=== PATIENT | female | born 1985 | race Caucasian/White ===

== ENCOUNTER → 2016-11-19 | Outpatient (CLI) | payer OTHER ==
[~2016-11-19] MED LIST: MOTR200T44 PO; TYLE167L PO; VITAPRTA PO
[2016-11-19 18:30] LABS: BASO % 0.2 % (0.0-1.0); EOS % 0.4 % (0.0-3.0); LARGE UNSTAINED CELL # 0.1 K/mm3 (0.0-0.4); LARGE UNSTAINED CELL % 1.6 % (0.0-4.0); LYMPH # 1.9 K/mm3 (1.5-4.5); MEAN CORPUSCULAR HEMOGLOBIN 31.6 pg (27.0-33.0); MEAN CORPUSCULAR HGB CONC 34.1 g/dl (32.0-36.5); MEAN CORPUSCULAR VOLUME 92.5 fl (80.0-96.0); MONO # 0.4 K/mm3 (0.0-0.8); MONO % 4.5 % (0.0-5.0); NEUTROPHILS # 6.1 K/mm3 (1.8-7.7); NEUTROPHILS % 71.3 % (36.0-66.0); PLATELET COUNT, AUTOMATED 231 k/mm3 (150-450); RED CELL DISTRIBUTION WIDTH 11.7 % (11.5-14.5); WHITE BLOOD COUNT 8.5 K/mm3 (4.0-10.0)
[2016-11-20 09:42] LABS: HBsAg Prenatal NEGATIVE (NEGATIVE)
[2016-11-20 10:08] LABS: HIV SCREEN CENTAUR NEGATIVE (NEGATIVE)
== END ==
LOC: M WUC 15:19
PROVIDERS: ATTEND Obstetrics & Gynecology
DX: Z34.81 Encounter for supervision of other normal pregnancy, first trimester (principal)

== ENCOUNTER → 2016-12-02 | Outpatient (CLI) | payer OTHER | LOC: M LAB 07:11 | PROVIDERS: ATTEND Obstetrics & Gynecology | DX: Z34.81 Encounter for supervision of other normal pregnancy, first trimester (principal) ==

== ENCOUNTER → 2016-12-15 | Outpatient (CLI) | payer OTHER | LOC: M WUC 18:56 | PROVIDERS: ATTEND Obstetrics & Gynecology | DX: Z13.79 Encounter for other screening for genetic and chromosomal anomalies (principal) ==

== ENCOUNTER → 2017-04-14 | Outpatient (REF) | payer OTHER ==
[~2017-04-14] MED LIST changes: +ACET50TA PO; +FOLI800C PO; +IBUP-1114 PO; +IRON65TA PO
[2017-04-14 15:14] LABS: MEAN CORPUSCULAR HEMOGLOBIN 35.1 pg (27.0-33.0); MEAN CORPUSCULAR HGB CONC 35.1 g/dl (32.0-36.5); MEAN CORPUSCULAR VOLUME 99.9 fl (80.0-96.0); RED CELL DISTRIBUTION WIDTH 12.8 % (11.5-14.5); WHITE BLOOD COUNT 9.4 K/mm3 (4.0-10.0)
== END ==
LOC: M LAB REF 13:27
PROVIDERS: ATTEND Advanced Practice Midwife
DX: D64.9 Anemia, unspecified (principal)

== ENCOUNTER → 2017-05-20 | Outpatient (REF) | payer OTHER | LOC: M LAB REF 13:04 | PROVIDERS: ATTEND Advanced Practice Midwife | DX: O30.043 Twin pregnancy, dichorionic/diamniotic, third trimester (principal); Z3A.33 33 weeks gestation of pregnancy ==

== ENCOUNTER 2017-05-31 12:03 | Outpatient (CLI) | payer OTHER ==
[~2017-05-31] VITALS: Ht 162.6 cm; Wt 85.0 kg
[~2017-05-31 12:03] MED LIST changes: -ACET50TA PO; -FOLI800C PO; -IBUP-1114 PO; -IRON65TA PO
--- NOTE | 2017-05-31 12:35 | IPNPDOC ---
Text Note Date of Service The patient was seen on 05/31/17. NOTE SUBJECTIVE: Patient is a 31 year-old female who is a at 34.5 weeks gestation based off of her LMP and consistent with her 1st trimester ultrasound. Her has been complicated by twin gestation that are di/di and A1GDM. She presents to L&D for monitoring and a BPP after having a non- reactive strip for Baby B. Baby B had 2 spontaneous decelerations on NST in office. Patient denies vaginal bleeding or contractions. Reports active movement. Medical history: varicella as a child Surgical: wisdom teeth extraction Family History: noncontributory OBJECTIVE: Vital signs: see below. Baby A: FHR 125, moderate variability, positive accelerations, no decelerations. Baby B: FHR 130, moderate variability , no decelerations, positive accelerations. Contractions every 10 to 12 minutes. Abdomen soft with palpation. BPP: see below. ASSESSMENT: di/di twin at 34.5 weeks gestation, A1GDM, Category I FHR tracing. PLAN: Reviewed Category I FHR tracings with mom and results of her normal BPP. Patient to be discharged home. Education done with patient on labor signs and symptoms, movement, leaking of fluid, and danger signs that need to be reported. Patient is to follow-up in the office on . VS,Miguel Angelbone, I+O VS, Fishbone, I+O Obstetric ultrasound, stat request, twin gestation questionable baby B heart rate and nonreactive BB in the stress test. There is a twin intrauterine gestation. The gestation is unknown, diamniotic dichorionic gestation. The placenta of each twin A is anterior and the percent of each twin B demonstrates grade 2 maturity. There is no placenta previa or abruptio of either twin. Twin A is in a vertex presentation on the maternal left. Twin B is in a vertex presentation on the maternal right. The amniotic fluid volume for twin A is subjectively normal. The deepest amniotic fluid pocket is 2.7 cm. The amniotic fluid volume for twin B is subjectively normal. The deepest amniotic fluid pocket is 2.7 cm. Twin A biophysical profile: Breathing 2 Tone 2 Movement 2 Amniotic fluid volume 2 Total 8/8 Twin B biophysical profile: Breathing 2 Movement 2 Tone 2 Amniotic fluid volume 2 Total 8/8 Umbilical artery Doppler assessment: Twin A SD ratio 2.57, resistive index 0.61, diastolic flow velocity 14.6 cm/sec. These values are normal. Twin B SD ratio 3.00, resistive index 0.67, diastolic flow velocity 11.7 cm/sec. These values are normal. heart rate: Twin A 138 beats per minute. Twin B 134 beats per minute. Vital Signs Label Value Date Time Patient Temperature 98.2 degrees F 05/31/17 1306 Temperature Source Temporal 05/31/17 1306 Pulse 68 05/31/17 1306 Respiratory Rate 16 bpm 05/31/17 1306 Blood Pressure Assessment 98/61 (73) 05/31/17 1306 Source Automatic Cuff (NIBP) DENIZ LEBLANC CNM May 31, 2017 12:35
[2017-05-31 13:06] VITALS: BP 98/61
--- NOTE | 2017-05-31 13:17 | REP ---
Obstetric ultrasound, stat request, twin gestation questionable baby B heart rate and nonreactive BB in the stress test. There is a twin intrauterine gestation. The gestation is unknown, diamniotic dichorionic gestation. The placenta of each twin A is anterior and the percent of each twin B demonstrates grade 2 maturity. There is no placenta previa or abruptio of either twin. Twin A is in a vertex presentation on the maternal left. Twin B is in a vertex presentation on the maternal right. The amniotic fluid volume for twin A is subjectively normal. The deepest amniotic fluid pocket is 2.7 cm. The amniotic fluid volume for twin B is subjectively normal. The deepest amniotic fluid pocket is 2.7 cm. Twin A biophysical profile: Breathing 2 Tone 2 Movement 2 Amniotic fluid volume 2 Total 8/8 Twin B biophysical profile: Breathing 2 Movement 2 Tone 2 Amniotic fluid volume 2 Total 8/8 Umbilical artery Doppler assessment: Twin A SD ratio 2.57, resistive index 0.61, diastolic flow velocity 14.6 cm/sec. These values are normal. Twin B SD ratio 3.00, resistive index 0.67, diastolic flow velocity 11.7 cm/sec. These values are normal. heart rate: Twin A 138 beats per minute. Twin B 134 beats per minute. Gestational age by LMP is 34 weeks 5 days with an DARRIN of 07/07/2017. Signed by Ej Flood MD 05/31/2017 01:08 P
[2017-05-31] MEDS ORDERED: FOLI800C PO (13:18)
[2017-05-31] MEDS ORDERED: IRON65TA PO (13:18)
[2017-06-27] MEDS ORDERED: IBUP-1114 PO (10:32)
[2017-06-27] MEDS ORDERED: ACET50TA PO (10:32)
== END 2017-05-31 14:30 | disposition home or self-care (01) ==
LOC: M LDO 12:03
PROVIDERS: ATTEND Advanced Practice Midwife
DX: O30.043 Twin pregnancy, dichorionic/diamniotic, third trimester (principal); Z3A.34 34 weeks gestation of pregnancy; Z88.3 Allergy status to other anti-infective agents; Z91.013 Allergy to seafood

== ENCOUNTER → 2018-07-04 | Outpatient (REF) | payer OTHER ==
[2018-07-04 15:05] LABS: BASO % 0.4 % (0.0-1.0); EOS # 0.1 10^3/uL (0.0-0.50); EOS % 1.3 % (0.0-3.0); HEMATOCRIT 38.4 % (36.0-47.0); HEMOGLOBIN 12.8 g/dl (12.0-15.5); LYMPH % 43.3 % (24.0-44.0); MEAN CORPUSCULAR HEMOGLOBIN 31.8 pg (27.0-33.0); MEAN CORPUSCULAR HGB CONC 33.3 g/dl (32.0-36.5); MEAN CORPUSCULAR VOLUME 95.5 fl (80.0-96.0); MONO # 0.5 10^3/uL (0.0-0.8); MONO % 10.8 % (0.0-5.0); NEUTROPHILS # 2.1 10^3/uL (1.8-7.7); NEUTROPHILS % 44.2 % (36.0-66.0); PLATELET COUNT, AUTOMATED 234 10^3/uL (150-450); RED BLOOD COUNT 4.02 10^6/uL (4.00-5.40); RED CELL DISTRIBUTION WIDTH 11.9 % (11.5-14.5); WHITE BLOOD COUNT 4.6 10^3/uL (4.0-10.0)
[2018-07-04 15:28] LABS: ALBUMIN 3.7 GM/DL (3.2-5.2); ALBUMIN/GLOBULIN RATIO 1.37 (1.00-1.93); ALKALINE PHOSPHATASE 41 U/L (45-117); ALT/SGPT 20 U/L (12-78); ANION GAP 6 MEQ/L (8-16); AST/SGOT 12 U/L (7-37); BILIRUBIN,TOTAL 0.5 MG/DL (0.2-1.0); BLOOD UREA NITROGEN 14 MG/DL (7-18); CALCIUM LEVEL 8.7 MG/DL (8.5-10.1); CARBON DIOXIDE LEVEL 28 MEQ/L (21-32); CHLORIDE LEVEL 107 MEQ/L (98-107); CHOLESTEROL LEVEL 131 MG/DL (<200); CHOLESTEROL RISK RATIO 3.046 (<5); CREATININE FOR GFR 0.66 MG/DL (0.55-1.30); FREE T4 0.96 NG/DL (0.76-1.46); GLOMERULAR FILTRATION RATE > 60.0 (>60); GLUCOSE, FASTING 105 MG/DL (70-100); HDL CHOLESTEROL 43 MG/DL (>40); LDL CHOLESTEROL 56 MG/DL (<100); NON-HDL-C 88 MG/DL; POTASSIUM SERUM 4.1 MEQ/L (3.5-5.1); SODIUM LEVEL 141 MEQ/L (136-145); THYROID STIMULATING HORMONE 0.978 uIU/ML (0.358-3.740); TOTAL PROTEIN 6.4 GM/DL (6.4-8.2); TRIGLYCERIDES LEVEL 159 MG/DL (<150)
[2018-07-04 15:37] LABS: TOTAL 25(OH) VITAMIN D 23.9 NG/ML (30.0-100.0)
== END ==
LOC: M SFHCSACK 09:20
DX: Z13.21 Encounter for screening for nutritional disorder (principal); Z83.49 Family history of other endocrine, nutritional and metabolic diseases; Z13.29 Encounter for screening for other suspected endocrine disorder

== ENCOUNTER → 2018-11-09 | Outpatient (REF) | payer OTHER ==
[~2018-11-09] MED LIST changes: +FOLI800C PO; +IBUP-1114 PO; +IRON65TA PO; +MAPA500T2 PO
[2018-11-09 14:29] LABS: BASO % 0.7 % (0.0-1.0); EOS % 0.7 % (0.0-3.0); HEMATOCRIT 40.5 % (36.0-47.0); HEMOGLOBIN 13.8 g/dl (12.0-15.5); LYMPH # 1.9 10^3/uL (1.5-4.5); LYMPH % 43.2 % (24.0-44.0); MEAN CORPUSCULAR HEMOGLOBIN 32.5 pg (27.0-33.0); MEAN CORPUSCULAR HGB CONC 34.1 g/dl (32.0-36.5); MEAN CORPUSCULAR VOLUME 95.3 fl (80.0-96.0); MONO # 0.4 10^3/uL (0.0-0.8); NEUTROPHILS % 46.2 % (36.0-66.0); PLATELET COUNT, AUTOMATED 225 10^3/uL (150-450); RED BLOOD COUNT 4.25 10^6/uL (4.00-5.40); WHITE BLOOD COUNT 4.3 10^3/uL (4.0-10.0)
[2018-11-09 14:52] LABS: HEMOGLOBIN A1c 5.4 %
[2018-11-09 14:56] LABS: ALT/SGPT 15 U/L (12-78); BILIRUBIN,TOTAL 0.4 MG/DL (0.2-1.0); BLOOD UREA NITROGEN 17 MG/DL (7-18); CALCIUM LEVEL 8.6 MG/DL (8.5-10.1); CARBON DIOXIDE LEVEL 28 MEQ/L (21-32); CHLORIDE LEVEL 108 MEQ/L (98-107); CREATININE FOR GFR 0.65 MG/DL (0.55-1.30); GLOMERULAR FILTRATION RATE > 60.0 (>60); GLUCOSE, FASTING 100 MG/DL (70-100); POTASSIUM SERUM 4.6 MEQ/L (3.5-5.1); SODIUM LEVEL 139 MEQ/L (136-145); TOTAL PROTEIN 6.7 GM/DL (6.4-8.2)
[2018-11-09 15:04] LABS: TOTAL 25(OH) VITAMIN D 49.3 NG/ML (30.0-100.0)
== END ==
LOC: M SFHCSACK 08:26
PROVIDERS: ATTEND Physician Assistant
DX: R73.09 Other abnormal glucose (principal); E55.9 Vitamin D deficiency, unspecified

== ENCOUNTER 2021-08-26 15:47 | Emergency (ER) | payer OTHER ==
[~2021-08-26] VITALS: Ht 162.6 cm; Wt 63.6 kg
[2021-08-26 15:48] VITALS: BP 119/78
[2021-08-26] MEDS ORDERED: KETOROLAC 30 MG/ML 1ML VIAL IV ONE (16:25)
[2021-08-26] MEDS ORDERED: NS 1,000 ML IV ONE (16:25)
[2021-08-26] MEDS ORDERED: ONDANSETRON 4MG/2ML VIAL IV ONE (16:25)
[2021-08-26 17:07] LABS: BASO % 0.3 % (0.0-1.0); HEMATOCRIT 38.4 % (36.0-47.0); LYMPH # 0.9 10^3/uL (1.5-5.0); LYMPH % 6.8 % (24.0-44.0); MEAN CORPUSCULAR HGB CONC 33.9 g/dl (32.0-36.5); MEAN CORPUSCULAR VOLUME 94.6 fl (80.0-96.0); MONO # 0.6 10^3/uL (0.0-0.8); MONO % 4.9 % (2.0-8.0); NEUTROPHILS # 11.1 10^3/uL (1.5-8.5); NEUTROPHILS % 87.7 % (36.0-66.0); PLATELET COUNT, AUTOMATED 323 10^3/uL (150-450); RED BLOOD COUNT 4.06 10^6/uL (4.00-5.40); WHITE BLOOD COUNT 12.7 10^3/uL (4.0-10.0)
[2021-08-26 17:30] LABS: ALBUMIN 4.2 GM/DL (3.2-5.2); ALT/SGPT 35 U/L (12-78); BILIRUBIN,DIRECT 0.1 MG/DL (0.0-0.2); BILIRUBIN,TOTAL 0.3 MG/DL (0.2-1.0); BLOOD UREA NITROGEN 14 MG/DL (7-18); CALCIUM LEVEL 8.7 MG/DL (8.5-10.1); CARBON DIOXIDE LEVEL 23 MEQ/L (21-32); CHLORIDE LEVEL 108 MEQ/L (98-107); CREATININE FOR GFR 0.79 MG/DL (0.55-1.30); GLOMERULAR FILTRATION RATE > 60.0 (>60); GLUCOSE, FASTING 96 MG/DL (70-100); POTASSIUM SERUM 3.6 MEQ/L (3.5-5.1); SODIUM LEVEL 142 MEQ/L (136-145); TOTAL PROTEIN 7.4 GM/DL (6.4-8.2)
[2021-08-26 17:34] LABS: HCG, SERUM QUALITATIVE NEGATIVE (NEGATIVE)
--- NOTE | 2021-08-26 18:30 | REPVR ---
PROCEDURE INFORMATION: Exam: CT Abdomen And Pelvis Without Contrast Exam date and time: 08/26/2021 5:46 PM Age: 35 years old Clinical indication: Other: R flank pain, relief with urination, then pain returns TECHNIQUE: Imaging protocol: Computed tomography of the abdomen and pelvis without contrast. Radiation optimization: All CT scans at this facility use at least one of these dose optimization techniques: automated exposure control; mA and/or kV adjustment per patient size (includes targeted exams where dose is matched to clinical indication); or iterative reconstruction. COMPARISON: US BPP W/O NON STRESS TEST 05/31/2017 12:27 PM FINDINGS: Lungs: No suspicious mass or airspace process in the visualized lung bases. Liver: Noncontrast liver shows no obvious lesion. Gallbladder and bile ducts: Gallbladder is present and shows no evidence of gallstone. Pancreas: Noncontrast pancreas shows no obvious mass or adjacent fluid. Spleen: Noncontrast spleen shows no obvious focal deformity. Adrenal glands: Adrenal glands are normal in appearance. Kidneys and ureters: Left kidney shows no hydronephrosis or stone. Right kidney demonstrates perinephric stranding and mild hydroureteronephrosis secondary to a 3 x 3 mm right UVJ stone. Stomach and bowel: Limited evaluation without enteric or IV contrast. No concerning asymmetry or abnormality at the gastroesophageal junction. No evidence of small bowel obstruction. Diverticular changes are present within the colon without inflammation. Appendix: Normal caliber appendix is identified, with no adjacent inflammation. Intraperitoneal space: No pneumoperitoneum. Vasculature: No aortic aneurysm. Lymph nodes: No enlarged lymph nodes. Urinary bladder: Urinary bladder appears normal. Reproductive: Female reproductive organs appear unremarkable. Bones/joints: Bony structures show no acute fracture or destructive process. Soft tissues: No concerning focal abnormality of the extra-abdominal and pelvic soft tissues. IMPRESSION: Mild right hydroureteronephrosis secondary to a 3 mm right UVJ stone. Electronically signed by: Kike Marmolejo On 08/26/2021 18:30:09 PM
[2021-08-26] MEDS ORDERED: TAMSULOSIN 0.4 MG CAP PO ONE (18:40)
[2021-08-26] MEDS ORDERED: CIPROFLOXACIN 500MG TABLET PO ONE (18:40)
[2021-08-26] MEDS ORDERED: FLOM0.4C39 PO (18:42)
[2021-08-26] MEDS ORDERED: CIPR-249 PO (18:42)
== END 2021-08-26 19:03 | disposition home or self-care (01) ==
LOC: M ED 15:47
DX: N21.1 Calculus in urethra (principal); N13.30 Unspecified hydronephrosis; F17.200 Nicotine dependence, unspecified, uncomplicated; Z91.89 Other specified personal risk factors, not elsewhere classified
CPT/HCPCS: 74176; 80048; 80076; 81001; 84703; 85025; 87086; 96361; 96374; 96375; 99283; J1885; J2405

== ENCOUNTER → 2024-01-19 | Outpatient (REF) | payer OTHER ==
[~2024-01-19] MED LIST changes: +CIPR-249 PO; +FLOM0.4C39 PO
== END ==
LOC: M SFHCPLAZ 10:55
PROVIDERS: ATTEND Student in an Organized Health Care Education/Training Program
DX: E55.9 Vitamin D deficiency, unspecified (principal); Z76.89 Persons encountering health services in other specified circumstances; E78.1 Pure hyperglyceridemia; Z53.9 Procedure and treatment not carried out, unspecified reason

== ENCOUNTER → 2024-01-31 | Outpatient (CLI) | payer OTHER | LOC: M WHC 13:34 | PROVIDERS: ATTEND Student in an Organized Health Care Education/Training Program | DX: Z12.31 Encounter for screening mammogram for malignant neoplasm of breast (principal); R92.323 Mammographic fibroglandular density, bilateral breasts; N63.20 Unspecified lump in the left breast, unspecified quadrant; R92.8 Other abnormal and inconclusive findings on diagnostic imaging of breast ==

== ENCOUNTER → 2024-02-22 | Outpatient (CLI) | payer OTHER | LOC: M WHC 10:09 | PROVIDERS: ATTEND Student in an Organized Health Care Education/Training Program | DX: R92.8 Other abnormal and inconclusive findings on diagnostic imaging of breast (principal); R92.323 Mammographic fibroglandular density, bilateral breasts; N60.12 Diffuse cystic mastopathy of left breast ==

== ENCOUNTER → 2024-03-09 | Outpatient (CLI) | payer OTHER ==
[2024-03-09 11:10] VITALS: TEMP 98.5
[2024-03-09 12:07] VITALS: BP 100/70; O2SAT 100
== END ==
LOC: M WHCPRO 10:48
PROVIDERS: ATTEND Student in an Organized Health Care Education/Training Program
DX: R92.8 Other abnormal and inconclusive findings on diagnostic imaging of breast (principal); N63.21 Unspecified lump in the left breast, upper outer quadrant

== ENCOUNTER → 2024-12-28 | Outpatient (CLI) | payer OTHER ==
[~2024-12-28] MED LIST changes: -FLOM0.4C39 PO; +TAMS-18 PO
[2024-12-28 12:51] LABS: HEMATOCRIT 40.2 % (36.0-47.0); HEMOGLOBIN 13.4 g/dl (12.0-15.5); MEAN CORPUSCULAR HEMOGLOBIN 31.5 pg (27.0-33.0); MEAN CORPUSCULAR HGB CONC 33.3 g/dl (32.0-36.5); MEAN CORPUSCULAR VOLUME 94.6 fl (80.0-96.0); PLATELET COUNT, AUTOMATED 287 10^3/uL (150-450); RED BLOOD COUNT 4.25 10^6/uL (4.00-5.40); WHITE BLOOD COUNT 4.2 10^3/uL (4.0-10.0)
[2024-12-28 12:58] LABS: ALBUMIN 3.6 G/DL (3.2-5.2); ALKALINE PHOSPHATASE 41 U/L (35-104); ALT/SGPT 23 U/L (7.0-40); AST/SGOT 18 U/L (<34); BILIRUBIN,TOTAL 0.8 MG/DL (0.3-1.2); BLOOD UREA NITROGEN 13 MG/DL (9-23); CALCIUM LEVEL 8.5 MG/DL (8.5-10.1); CARBON DIOXIDE LEVEL 28 MMOL/L (20-31); CHLORIDE LEVEL 105 MMOL/L (98-107); CHOLESTEROL LEVEL 151 MG/DL (<200); CHOLESTEROL RISK RATIO 3.13 (<5); CREATININE FOR GFR 0.65 MG/DL (0.55-1.30); GLOMERULAR FILTRATION RATE > 90.0 (>58); GLUCOSE, FASTING 114 MG/DL (60-100); HDL CHOLESTEROL 48.2 MG/DL (>40); LDL CHOLESTEROL 80.8 MG/DL (<100); NON-HDL-C 102.8 MG/DL; POTASSIUM SERUM 3.8 MMOL/L (3.5-5.1); SODIUM LEVEL 140 MMOL/L (136-145); TOTAL PROTEIN 6.5 G/DL (5.7-8.2); TRIGLYCERIDES LEVEL 110 MG/DL (<150)
[2024-12-28 13:00] LABS: FREE T4 1.25 NG/DL (0.89-1.76); THYROID STIMULATING HORMONE 1.338 uIU/ML (0.55-4.78)
[2024-12-28 13:53] LABS: HEMOGLOBIN A1c 5.3 % (4.0-6.0)
== END ==
LOC: M WUC 08:56
PROVIDERS: ATTEND Physician Assistant
DX: Z00.00 Encounter for general adult medical examination without abnormal findings (principal)

== ENCOUNTER → 2025-04-18 | Outpatient (CLI) | payer OTHER | LOC: M WHC 16:49 | PROVIDERS: ATTEND Family Medicine | DX: Z12.31 Encounter for screening mammogram for malignant neoplasm of breast (principal); Z53.9 Procedure and treatment not carried out, unspecified reason ==

== ENCOUNTER → 2025-04-25 | Outpatient (CLI) | payer BC, MEDICAID | LOC: M WHC 16:46 | PROVIDERS: ATTEND Family Medicine | DX: Z12.31 Encounter for screening mammogram for malignant neoplasm of breast (principal); R92.323 Mammographic fibroglandular density, bilateral breasts ==

== ENCOUNTER → 2025-08-07 | Outpatient (CLI) | payer BC | LOC: M PLALAB 10:57 | PROVIDERS: ATTEND Physician Assistant | DX: Z84.81 Family history of carrier of genetic disease (principal) ==